=== PATIENT | female | born 1980 | race Caucasian/White ===

== ENCOUNTER 2018-06-28 09:29 | Emergency (ER) | payer MEDICAID ==
[~2018-06-28] VITALS: Ht 170.2 cm; Wt 62.1 kg
[2018-06-28] MEDS ORDERED: MORPHINE SULFATE INJ 4 MG/ML DISP.SYRIN ONE ×2 (09:50→11:06)
[2018-06-28] MEDS ORDERED: ONDANSETRON HCL/PF 4 MG/2 ML VIAL ONE (09:50)
[2018-06-28] MEDS ORDERED: ONDANSETRON HCL/PF - ER 4 MG/2 ML VIAL IV ONE (10:00)
[2018-06-28] MEDS ORDERED: MORPHINE SULFATE INJ 2 MG/ML DISP.SYRIN IV ONE (10:00)
[2018-06-28] MEDS ORDERED: PROPOFOL 40 ML IV ONE (10:49)
--- NOTE | 2018-06-28 10:50 | NUR ---
AT TO DISCUSS PROCEDURE TO PT AND SIGNIFICANT OTHER. PT VERBALIZED UNDERSTANDING. ALL QUESTIONS ANSWERED. CONSENT IS SIGNED.
--- NOTE | 2018-06-28 11:05 | NUR ---
CLOSED REDUCTION OF R ANKLE UNDER MODERATE SEDATION DONE BY DR. SERRANO. RT AT BS. MEDS GIVEN ORDERED.
--- NOTE | 2018-06-28 11:12 | NUR ---
PT AWAKE, ALERT AND ORIENTED X 4. VSS.
--- NOTE | 2018-06-28 11:14 | NUR ---
RECEIVED VERBAL ORDER FROM DR. SERRANO FOR MORPHINE 4MG IVP. ORDERS CARRIED OUT.
--- NOTE | 2018-06-28 11:15 | NUR ---
RECEIVED TOTAL OF 200MG PROPOFOL SLOW IVP FROM DR. SERRANO.
--- NOTE | 2018-06-28 11:17 | NUR ---
YVETTE AT BS.
--- NOTE | 2018-06-28 11:44 | NUR ---
DR SERRANO ON THE PHONE WITH DR QUEVEDO, INSTRUCTED ADMITTING TO CALL [facility] TO START TRANSFER PROCESS
--- NOTE | 2018-06-28 12:42 | NUR ---
FAXED FACESHEET AND CLINICALS TO [facility] AT [facility]
--- NOTE | 2018-06-28 13:21 | NUR ---
DR SERRANO ON THE PHONE WITH DR CASTELLANOS WHO WILL BE ADMITTING PATIENT AT [facility]
--- NOTE | 2018-06-28 13:47 | NUR ---
SPOKE WITH MARK IN THE ADMITTING, SHE NOTIFIED ME THAT SHE SPOKE WITH [facility] DIRECTOR OF [employer]ETING [employer] AND THEY WILL CALL BACK WITH ROOM ASSIGNMENT THAT PATIENT HAS BEEN ACCEPTED BY DR CASTELLANOS
--- NOTE | 2018-06-28 14:18 | NUR ---
PATIENT WILL BE ADMITTED TO [facility] ROOM 301-B RN TO RN REPORT ACCEPTING DR CASTELLANOS
--- NOTE | 2018-06-28 14:33 | NUR ---
REPORT GIVEN TO [facility].
[2018-06-28 14:50] VITALS: BP 111/71
--- NOTE | 2018-06-28 14:55 | NUR ---
PT ASSISTED TO USE THE BED SU. MD MADE AWARE OF PAIN.
[2018-06-28] MEDS ORDERED: KETOROLAC TROMETHAMINE INJ 30 MG/ML VIAL IV ONE (15:00)
[2018-06-28] MEDS ORDERED: KETOROLAC TROMETHAMINE 15 MG/ML VIAL ONE (15:05)
== END 2018-06-28 15:40 | disposition short-term general hospital (02) ==
LOC: ER 09:30
DX: S82.391A Other fracture of lower end of right tibia, initial encounter for closed fracture (principal); S82.491A Other fracture of shaft of right fibula, initial encounter for closed fracture; Z88.5 Allergy status to narcotic agent; W50.0XXA Accidental hit or strike by another person, initial encounter; Y93.66 Activity, soccer; Y92.89 Other specified places as the place of occurrence of the external cause; Y99.8 Other external cause status
CPT/HCPCS: 27840; 73600; 73610; 96374; 96375; 99152; 99285; A4606; J2270; J2405; J2704; Z7610; J1885; J7030